=== PATIENT | female | born 1950 | race Caucasian/White ===

== ENCOUNTER 2025-03-31 11:43 | Outpatient (AMB) | payer OTHER, SELFPAY ==
--- NOTE | 2025-03-31 12:00 | A.OFFVIS_ITS ---
Vital Signs 03/31/25 12:15 Height 5 ft 4 in Weight 174 lb BMI 29.9 BP 142/78 H Blood Pressure Location Rt brachial Position Sitting Respiration 16 Pulse 81 Pulse Source Pulse Oximeter Pulse Oximetry (%) 99 Oxygen Delivery Method Room Air Intake Visit Reasons: ENP: Ongoing Tremors Discovery Manager Required: No Allergies Penicillins Allergy (Mild, Verified 03/31/25 12:14) Unknown Medication List - Last Reconciled 03/31/25 by Kinza Joseph CNP atorvastatin 20 mg PO BEDTIME famotidine 40 mg PO BEDTIME levothyroxine 88 mcg PO DAILY primidone 75 mg (1.5 x 50 mg) PO BEDTIME 90 days HPI Comments Details: Theresa is a 74-year-old female patient with a past medical history of hyperlipidemia, anxiety disorder, hypothyroidism, GERD, vitamin-D deficiency who is referred to the [facility] for evaluation of a tremor. Her workup through primary care has so far included a TSH level which was slightly low at 0.478. She does take levothyroxine for a history of hypothyroidism. According to the patient today, she has had a tremor for the past 30 years. She was diagnosed over 30 years ago with graves disease and feels that the onset of the tremor may have coencided with other symptoms that were related to the thyroid. Her tremor is bilateral R>L. She notices it when she is performing activities with her hands and she does not notice it at rest. She also notices it more when she is nervous. She has not noticed any tremor of her head or jaw but has noticed in the past with eye exams and needing to hold her head still that there has been a head tremor in the past. Her prior primary care provider put her on primidone 50mg at bedtime in 2022. It worked very well initially but currently she is not sure if there is any significant benefit with the primidone or perhaps the effects are wearing away. When she was first started on the primidone she had some possible anxiety upon initiating it. She however is not having any adverse effects with its use currently. 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 Sleep: Some insomnia. No difficulty falling asleep but some difficulty staying asleep. [facility] Medical History (Updated 03/31/25 @ 13:05 by Kinza Joseph CNP) Ringing in ear Chronic tremor Fibrosclerosis of breast Vitamin D deficiency Dyslipidemia Hypothyroidism GERD (gastroesophageal reflux disease) Anxiety disorder Surgical History (Updated 03/08/25 @ 13:50 by Reggie Francois [facility]) Hx of cholecystectomy Family History (Updated 03/08/25 @ 13:51 by Reggie Francois [facility]) Maternal Grandmother Diabetes mellitus Mother Diabetes mellitus Hypertension HLD (hyperlipidemia) Father Cancer Review of Systems Const All systems reviewed & are unremarkable except as noted in HPI and below Physical Exam Const Orientation/consciousness: oriented to person, oriented to place and oriented to time Eyes Pupils: Equal, round and reactive pupils present Neuro General: oriented to person, oriented to place and oriented to time Cranial nerves: Yes CN's II-XII intact bilaterally, Yes Equal, round and reactive pupils present and Yes Nystagmus not present Cognition (Neuro): normal cognition Speech: Other speech findings present (Neuro) (Mild vocal tremor ) Gait exam (Neuro): Normal gait present Motor exam (neuro): 5/5 motor strength present throughout, Tremors during motor activity present (Bilateral upper extremity action tremor) bilateral upper extremity , Jaw , Head other (Intermittent no-no tremor ), Voice , Abnormal muscle tone present (BUE and BLE muscle stiffness/very mild cogwheeling ) and Other motor observations present (No bradykinesia ) Deep tendon reflexes (DTR's): Right triceps reflex intensity grade: 2+, Left triceps reflex intensity grade: 2+, Rt Biceps (C5, C6): 2+, Left biceps reflex intensity grade: 2+, Right brachioradialis reflex intensity grade: 2+, Left brachioradialis reflex intensity grade: 2+, Right patellar reflex intensity grade: 2+, Left patellar reflex intensity grade: 2+, Right ankle reflex intensity grade: 2+ and Left ankle reflex intensity grade: 2+ Coordination: [id number] test normal Assessment & Plan Assessment & Plan (1) Tremor: Code(s): R25.1 - Tremor, unspecified Category: Medical Plan Theresa is a 74-year-old female patient with a past medical history of hyperlipidemia, anxiety disorder, hypothyroidism, GERD, vitamin-D deficiency who is referred to the Neurology Clinic for evaluation of a tremor. History and exam findings are most consistent with a diagnosis of an essential tremor at this time. She does however have some mild rigidity on exam. We will continue to monitor this. She has responded to primidone in the past though more recently has not seen such a profound benefit at the 50 mg nightly dose. We will increase the dose slowly starting with 75 mg at bedtime. I did tell her that she could go up to 100 mg at bedtime if she tolerates a 75 mg dose and she can let me know at which time I would adjust her dosing with the pharmacy. She was encouraged to remain active and take part in moderate levels of exercise on a regular basis. -increase primidone from 50 mg at bedtime to 75 mg at bedtime. We will continue to altered dosing as needed -follow up in 2 months or sooner if needed Medications: New primidone 75 mg (1.5 x 50 mg) PO BEDTIME 135 tabs 3RF 90 days Coding Level of Care Code New Pt Level 4 (52269) Diagnoses Tremor R25.1
[2025-03-31 12:15] VITALS: BP 142/78; PULSE 81; RESP 16; O2SAT 99; BMI 29.9
--- OUTSIDE RECORDS SUMMARY | 2025-03-31 13:31 | XMS_ITS | Clinical Summary ---
Author Organization [facility] ity Address [address] [place] [address] Care Team Providers Care Gold And Silver Assayer Name Role Phone Unavailable Primary Care Provider Unavailabl e Social History Tobacco Use Types Packs/Day Years Used Date Smoking Tobacco: Never Assessed Comments Unknown Sex and Gender Information Value Date Recorded Sex Assigned at Not on file Legal Sex Female 12:15 PM EDT Gender Identity Not on file Sexual Orientation Not on file Plan of Treatment Health Maintenance Due Date Last Done Comments Breast Cancer Screening 1950 DTaP,Tdap,and Td Vaccines (1 - Tdap) 10/07/1971 Pneumococcal Vaccine: 50+ Ye ars (1 of 1 - PCV) 2002 Zoster Vaccines (1 of 2) 2002 Depression Screening 06/30/2024 COVID-19 Vaccine (1 - 2023-2 5 season) 2025 Influenza Vaccine (#1) 2025 RSV Immunization Adult Patie nts (1 - 1-dose 75+ series) 10/07/2027 HIB Vaccines Aged Out No longer eligi ble based on patient's age to complete this topic HPV Vaccines Aged Out No longer eligi ble based on patient's age to complete this topic Hepatitis A Vaccines Aged Out No long er eligible based on patient's age to complete this topic Hepatitis B Vaccines Aged Out No long er eligible based on patient's age to complete this topic IPV Vaccines Aged Out No longer eligi ble based on patient's age to complete this topic MMR Vaccines Aged Out No longer eligi ble based on patient's age to complete this topic Meningococcal ACWY Vaccine Aged Out N o longer eligible based on patient's age to complete this topic Meningococcal B Vaccine Aged Out No l onger eligible based on patient's age to complete this topic RSV Immunization Patients Un deric 20 months Aged Out No longer eligible b ased on patient's age to complete this topic Varicella Vaccines Aged Out No longer eligible based on patient's age to complete this topic
== END 2025-03-31 12:52 | disposition home or self-care (01) ==
LOC: HO.HSM 11:43
PROVIDERS: PCP Nurse Practitioner Family; Visit Provider Nurse Practitioner
DX: R25.1 Tremor, unspecified (principal)
CPT/HCPCS: 99204

== ENCOUNTER 2025-06-02 09:54 | Outpatient (AMB) | payer OTHER, SELFPAY ==
--- OUTSIDE RECORDS SUMMARY | 2025-05-28 23:59 | XMS_ITS | Continuity of Care Document ---
Author Organization [facility] Address [address] [place] [id number]- Care Team Providers Care Valve Repairer Name Role Phone Lee Ann SAENZ, Jacqueline Primary Care Physician Encounter [facility] Date(s): 04/28/25 - 05/28/25 [facility] [address] [place] [address]- Encounter Type: Triage Allergies, Adverse Reactions, Alerts Substance Criticality Severity Reaction Reaction Severity Status penicillin Active Glutens Active Immunizations Given and Recorded Vaccine Date Status Refusal Reason SARS-CoV-2 (COVID-19) mRNA-1273 vaccine 09/13/20 R ecorded SARS-CoV-2 (COVID-19) mRNA-1273 vaccine 08/18/20 R ecorded tetanus/diphtheria/pertussis, acel(Tdap) 05/05/19 Given tetanus/diphtheria/pertussis, acel(Tdap) 10/28/07 Recorded Medications atorvastatin 20 mg oral tablet See Instructions, TAKE 1 TABLET BY MOUTH ONCE DAILY AFTER SUPPER, # 90 tablet, 1 Refills, Maintenance, 08/25/23 1:26:00 PM EST, [id number], 165, cm, 06/06/23 13:32:00 EST, Height Start Date: 08/25/23 Status: Ordered Medication Dispense Status: Completed Quantity: 90.0 Unit: tablet Total Allowed Fills: 2 Fills Dispensed: 0 famotidine 40 mg oral tablet 1 tablet = 40 mg, By Mouth, Daily at bedtime, # 90 tablet, 3 Refills, Maintenance, 08/09/24 1:22:00 PM EST, Tablet, [id number], Partial fill upon patient request if the prescription is for a schedule II opioid drug., 168, cm, 06/08/24 10:32:00 EST, Height, 78.6, kg, 03/25/24 12:28:00 EDT,Dry Weight Start Date: 08/09/24 Status: Ordered Medication Dispense Status: Completed Quantity: 90.0 Unit: tablet Total Allowed Fills: 4 Fills Dispensed: 0 indomethacin 25 mg oral capsule 1 capsule = 25 mg, By Mouth, 3 times a day, PRN for gout pain, # 30 capsule, 0 Refills, Maintenance, 05/19/24 1:43:00 PM EST, Capsule, [id number], Partial fill upon patient request if the prescription is for a schedule II opioid drug., 168, cm, 05/19/24 12:54:00 EST, Height, 78.6, kg, 03/25/24 12:28:00 EDT, Dry Weight Start Date: 05/19/24 Status: Ordered Medication Dispense Status: Completed Quantity: 30.0 Unit: capsule Total Allowed Fills: 1 Fills Dispensed: 0 Indications: Pain in right ankle and joints of right foot; levothyroxine 0.088 mg oral tablet 1 tablet = 88 mcg, By Mouth, Daily, TAKE 1 TABLET BY MOUTH ONCE DAILY, # 90 tablet, 1 Refills, Maintenance, 01/13/24 10:12:00 AM EDT, Tablet, [id number], Partial fill upon patient request if the prescription is for a schedule II opioid drug., 165, cm, 06/06/23 13:32:00 EST, Height Start Date: 01/13/24 Status: Ordered Medication Dispense Status: Completed Quantity: 90.0 Unit: tablet Total Allowed Fills: 2 Fills Dispensed: 0 Mysoline 50 mg oral tablet 50 mg, 1, tablet, By Mouth, Daily at bedtime, # 90 tablet, Refills 2, Tot. Refills 2, Maintenance, 08/09/24 12:48:00 PM EST, Route to Pharmacy Electronically, [id number], Partial fill upon patient request if the prescription is for a schedule II opioid drug., 168, cm, 06/08/24 10:32:00 EST, Height, 78.6, kg, 03/25/24 12:28:00 EDT, Dry Weight Start Date: 08/09/24 Stop Date: 05/06/25 Status: Ordered Medication Dispense Status: Completed Quantity: 90.0 Unit: tablet Total Allowed Fills: 3 Fills Dispensed: 0 Patient's Own Meds Daily, Maintenance, Doterra supplement, 05/05/19 2:21:47 PM EST Start Date: 05/05/19 Status: Ordered Medication Dispense Status: Completed Total Allowed Fills: 1 Fills Dispensed: 0 Problem List Condition Confirmation Course Effective Dates Status H ealth Status Informant Anxiety Confirmed Active Nevus 1 Confirmed Active Bilateral tinnitus Confirmed Active Tinea Confirmed Active Fibrocystic disease of breast Confirmed Active Tremor of both hands Confirmed Active Gastroesophageal reflux disease Confirmed Active Hyperlipidemia Confirmed Active Hypothyroidism Confirmed Active Rectal prolapse Confirmed Active Vitamin D deficiency Confirmed Active 1Left axilla Social History Social History Type Response Sexual Sexually involved in last 6 months: No. Smoking Status Never (less than 100 in lifetime) entered on: 05/25/18 Sex Female Sex Representation Female (finding) Patient Care team information Care Team Personnel Name: Jacqueline Nance NP Position: S PCO Associate Professional Member Role: PCP Address: [address] [place] [address] Telecom: Care Team Related Persons Name: JESSE POWERS Insurance Providers Guarantor name: CHIQUITA POWERS Health Plan Information #: 1 Payer: [employer] Payer Identifier: CIPRIANO Member Number: [id number] Group Number: [id number] Subscriber Identifier: CIPRIANO Relationship to Subscriber: self Coverage Type: Medicare HMO Coverage Verification Date: NA Telecom: CIPRIANO Address:
--- NOTE | 2025-06-02 09:57 | A.OFFVIS_ITS ---
Vital Signs 06/02/25 10:03 Height 5 ft 4 in Weight 173 lb BMI 29.7 BP 122/78 Blood Pressure Location Rt brachial Position Sitting Respiration 16 Pulse 68 Pulse Source Pulse Oximeter Pulse Oximetry (%) 99 Oxygen Delivery Method Room Air Intake Visit Reasons: 2m Artificial Foliage Arranger Required: No Allergies Penicillins Allergy (Mild, Verified 06/02/25 10:05) Unknown HPI Comments Details: Theresa is a 74-year-old female patient with a past medical history of hyperlipidemia, anxiety disorder, hypothyroidism, GERD, vitamin-D deficiency who is following up today for tremor. We did our initial visit on 03/31/2025 at which time she reported that her tremor began approximately 30 years ago around the time she was diagnosed with Graves disease. Her tremor is bilateral R>L. She notices it when she is performing activities with her hands and she does not notice it at rest. She also notices it more when she is nervous. She has not noticed any tremor of her head or jaw but has noticed in the past with eye exams and needing to hold her head still that there has been a head tremor in the past. Her prior primary care provider put her on primidone 50mg at bedtime in 2022. It worked very well initially but currently she is not sure if there is any significant benefit with the primidone or perhaps the effects are wearing away. When she was first started on the primidone she had some possible anxiety upon initiating it. She however is not having any adverse effects with its use currently. During our last visit together, her exam was reassuring though she did have some mild rigidity which I made note to monitor. She did not have any other parkinsonian features on exam. We plan to increase her primidone from 50 mg at bedtime to 75 mg at bedtime and to continue altering the dose as needed to achieve therapeutic response. She tells me today that since our last visit and with the increase in the primidone, she has not seen any substantial improvement in her tremor. She feels she is relatively the same. In general, she does not feel that since starting the primidone at all she has seen much difference. She denies any particular worsening of her tremor or any new neurological symptoms. 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 Sleep: Some insomnia. No difficulty falling asleep but some difficulty staying asleep. [facility] Medical History (Updated 03/31/25 @ 13:05 by Kinza Joseph CNP) Ringing in ear Chronic tremor Fibrosclerosis of breast Vitamin D deficiency Dyslipidemia Hypothyroidism GERD (gastroesophageal reflux disease) Anxiety disorder Surgical History (Updated 03/08/25 @ 13:50 by Reggie Francois CMA) Hx of cholecystectomy Family History (Updated 03/08/25 @ 13:51 by Reggie Francois CMA) Maternal Grandmother Diabetes mellitus Mother Diabetes mellitus Hypertension HLD (hyperlipidemia) Father Cancer Review of Systems Const All systems reviewed & are unremarkable except as noted in HPI and below Physical Exam Const Orientation/consciousness: oriented to person, oriented to place and oriented to time Eyes Pupils: Equal, round and reactive pupils present Neuro General: oriented to person, oriented to place and oriented to time Cranial nerves: Yes CN's II-XII intact bilaterally, Yes Equal, round and reactive pupils present and Yes Nystagmus not present Cognition (Neuro): normal cognition Speech: Other speech findings present (Neuro) (Mild vocal tremor ) Gait exam (Neuro): Normal gait present Motor exam (neuro): 5/5 motor strength present throughout, Tremors during motor activity present (Bilateral upper extremity action tremor) Head other (Intermittent no-no tremor ), Abnormal muscle tone present (BUE and BLE muscle stiffness/very mild cogwheeling ) and Other motor observations present (No bradykinesia ) Deep tendon reflexes (DTR's): Right triceps reflex intensity grade: 2+, Left triceps reflex intensity grade: 2+, Rt Biceps (C5, C6): 2+, Left biceps reflex intensity grade: 2+, Right brachioradialis reflex intensity grade: 2+, Left brachioradialis reflex intensity grade: 2+, Right patellar reflex intensity grade: 2+, Left patellar reflex intensity grade: 2+, Right ankle reflex intensity grade: 2+ and Left ankle reflex intensity grade: 2+ Coordination: [id number] test normal Assessment & Plan Assessment & Plan (1) Tremor: Code(s): R25.1 - Tremor, unspecified Category: Medical Plan Theresa is a 74-year-old female patient with a past medical history of hyperlipidemia, anxiety disorder, hypothyroidism, GERD, vitamin-D deficiency who is following up today for tremor. Her tremor in general is characteristic of an essential tremor though notably on her exam she does have some mild rigidity which we will continue to monitor. She otherwise has no evidence of parkinsonian features. She has not been responding to the primidone even with a modest increase in the dose at 75 mg nightly. We could go up on the dose to see if she responds however given the risk for osteoporosis I think it is reasonable to try her on an alternative medication. I will start propranolol 10 mg twice daily. If the propranolol works to improve her tremor, I will advise to wean down on the primidone by 25 mg per week. We can also eventually increase her propranolol to 20 mg twice daily if she does well with the 10 mg twice daily and there was need for improvement. -Start Propranolol 10mg twice daily -Continue primidone for now but consider tapering by 25 mg nightly per week if she has improvement with propranolol -Follow-up in 4 months or call sooner if needed in the meantime Medications: New propranolol 10 mg PO BID 60 tabs 5RF 30 days Coding Level of Care Code Est Pt Level 4 (50441) Diagnoses Tremor R25.1
[2025-06-02 10:03] VITALS: BP 122/78; PULSE 68; RESP 16; O2SAT 99; BMI 29.7
--- OUTSIDE RECORDS SUMMARY | 2025-06-02 11:35 | XMS_ITS | Clinical Summary ---
Author Organization [facility] ity Address [address] [place] [address] Care Team Providers Care Claims Technician Name Role Phone Unavailable Primary Care Provider [...] Depression Screening 06/30/2024 COVID-19 Vaccine (1 - 2024-2 6 season) 2025 Influenza Vaccine (#1) 2025 RSV [...]
== END 2025-06-02 10:24 | disposition home or self-care (01) ==
LOC: HO.HSM 09:55
PROVIDERS: PCP Nurse Practitioner Family; Visit Provider Nurse Practitioner
DX: R25.1 Tremor, unspecified (principal)
CPT/HCPCS: 99214